=== PATIENT | male | born 1955 | race Caucasian/White ===

== ENCOUNTER → 2017-01-17 | Outpatient (CLI) | payer OTHER ==
[~2017-01-17] MED LIST: AMARYL 2MG T2 MG/TAB PO; ASPIRIN 32325 MG/TAB PO; ASPIRIN E.C. 8181 MG PO; CIPRO 500MG TA500 MG PO; DAILY VITAMINS1 TAB PO; FLOMAX 0.40.4 MG/CAP PO; GLIMEPIRIDE4 MG PO; JANUVIA 100MG100 MG PO; MAREPA1200 MG PO; METFORMIN1000 MG PO; MEVACOR 20M20 MG/TAB PO; MOTRIN 200200 MG/TAB PO; OMNICEF 300MG300 MG PO; PRAVACHOL 20MG20 MG PO; PYRIDIUM 100MG100 MG PO; SALINE MIST 4545 ML NS; TENORMIN100 MG PO; TENORMIN50 MG PO; ZESTORETIC 25 M1 TAB PO; ZESTRIL 5MG5 MG PO
== END ==
LOC: SUN.DIA 15:21
DX: E11.65 Type 2 diabetes mellitus with hyperglycemia (principal); E66.9 Obesity, unspecified; Z68.28 Body mass index [BMI] 28.0-28.9, adult; Z71.3 Dietary counseling and surveillance; E78.5 Hyperlipidemia, unspecified; I10 Essential (primary) hypertension
CPT/HCPCS: G0108

== ENCOUNTER 2017-01-29 22:44 | Emergency (ER) | payer OTHER ==
[~2017-01-29] VITALS: Ht 175.3 cm; Wt 84.1 kg
[~2017-01-29 22:44] MED LIST changes: -AMARYL 2MG T2 MG/TAB PO; -CIPRO 500MG TA500 MG PO; -FLOMAX 0.40.4 MG/CAP PO; -MOTRIN 200200 MG/TAB PO; -OMNICEF 300MG300 MG PO; -PYRIDIUM 100MG100 MG PO; -SALINE MIST 4545 ML NS; -TENORMIN100 MG PO
[2017-01-29 22:54] VITALS: TEMP 98.7
[2017-01-29 23:40] LABS: PH 5 (5-8); SQUAMOUS EPITHELIAL 0-2 /hpf; URINE APPEARANCE Clear; URINE BACTERIA None Seen /hpf; URINE BILIRUBIN Negative (NEGATIVE); URINE BLOOD 1+ (NEGATIVE); URINE COLOR Yellow; URINE GLUCOSE Negative (NEGATIVE); URINE KETONE Negative (NEGATIVE); URINE UROBILINOGEN Negative (NEGATIVE)
[2017-01-30 00:07] LABS: HEMATOCRIT 40.3 % (42.0-52.0); HEMOGLOBIN 13.9 g/dl (13.5-18.0); MEAN CELL VOLUME 89 fl (80.0-100.0); MEAN CORPUSCULAR HEMOGLOBIN 31 pg (27.0-31.0); MEAN CORPUSCULAR HGB CONC 35 g/dl (33.0-37.0); MEAN PLATELET VOLUME 10.3 fl (7.4-10.4); PLATELET COUNT 178 K/mm3 (130-400); RED BLOOD COUNT 4.53 M/mm3 (4.20-5.60); REDCELL DISTRIBUTION WIDTH-CV 12.1 % (11.5-14.5); WHITE BLOOD COUNT 15.8 K/mm3 (4.8-10.8)
[2017-01-30 00:10] LABS: ADD PATHOLOGY DIFF REVIEW NO
[2017-01-30 00:16] LABS: CALCIUM 9.4 mg/dL (8.4-10.2); CREATININE, serum 1.44 mg/dL (0.66-1.25); POTASSIUM 3.6 mmol/L (3.4-5.0)
[2017-01-30 00:26] LABS: BAND 11 % (0-10); EOSINOPHIL 1 % (0-4); NEUTROPHILS 71 % (42.0-75.2); PLATELET ESTIMATE NORMAL (NORMAL); TOTAL CELLS COUNTED 100
[2017-01-30] MEDS ORDERED: OMNICEF 300MG300 MG PO (00:55)
[2017-01-30] MEDS ORDERED: FLOMAX 0.40.4 MG/CAP PO (00:55)
[2017-01-30 01:24] VITALS: BP 98/65; PULSE 58
== END 2017-01-30 01:27 | disposition home or self-care (01) ==
LOC: COL.ER 22:44
PROVIDERS: Emergency Medicine
DX: K59.00 Constipation, unspecified (principal); R33.9 Retention of urine, unspecified; E11.9 Type 2 diabetes mellitus without complications; I10 Essential (primary) hypertension; E78.5 Hyperlipidemia, unspecified; Z79.84 Long term (current) use of oral hypoglycemic drugs; Z79.82 Long term (current) use of aspirin
CPT/HCPCS: J0696

== ENCOUNTER 2017-02-23 05:27 | Observation (INO) | payer OTHER ==
[2017-02-23] VITALS (11 sets, daily range): BP systolic 91–132; BP diastolic 53–83; PULSE 52–87; TEMP 97.8–98.6
[~2017-02-23] VITALS: Ht 175.3 cm; Wt 84.7 kg
[~2017-02-23 05:27] MED LIST changes: +FLOMAX 0.40.4 MG/CAP PO; +OMNICEF 300MG300 MG PO
[2017-02-23] MEDS ORDERED: AMARYL 2MG T2 MG/TAB PO (06:48)
[2017-02-23] MEDS ORDERED: TENORMIN100 MG PO (06:49)
[2017-02-23] MEDS ORDERED: MOTRIN 200200 MG/TAB PO (06:50)
[2017-02-23] MEDS ORDERED: SALINE MIST 4545 ML NS (06:51)
[2017-02-23] MEDS ORDERED: PYRIDIUM 100MG100 MG PO (06:52)
[2017-02-23] MEDS ORDERED: CIPRO 500MG TA500 MG PO (06:53)
[2017-02-24] VITALS (7 sets, daily range): BP systolic 96–113; BP diastolic 56–69; PULSE 54–75; TEMP 97.8–98.6
[2017-02-24 06:41] LABS: MEAN CELL VOLUME 93 fl (80.0-100.0); MEAN CORPUSCULAR HGB CONC 32 g/dl (33.0-37.0); PLATELET COUNT 164 K/mm3 (130-400); REDCELL DISTRIBUTION WIDTH-CV 11.9 % (11.5-14.5); WHITE BLOOD COUNT 12.5 K/mm3 (4.8-10.8)
[2017-02-24 06:49] LABS: HEMATOCRIT 30.6 % (42.0-52.0); HEMOGLOBIN 9.9 g/dl (13.5-18.0); MEAN CORPUSCULAR HEMOGLOBIN 30 pg (27.0-31.0)
[2017-02-25 06:00] VITALS: BP 112/70; PULSE 66; TEMP 98.1
[2017-02-25 09:35] VITALS: BP 119/71; PULSE 64; TEMP 99.3
== END 2017-02-25 11:24 | disposition home or self-care (01) ==
LOC: SDCO 05:27 → SURG 10:30 → SDCO 02-24 09:21 → SURG 02-24 09:22
PROVIDERS: Urology
DX: N40.1 Benign prostatic hyperplasia with lower urinary tract symptoms (principal); N13.8 Other obstructive and reflux uropathy; I10 Essential (primary) hypertension; E11.9 Type 2 diabetes mellitus without complications; E78.5 Hyperlipidemia, unspecified; F41.8 Other specified anxiety disorders; F32.9 Major depressive disorder, single episode, unspecified; M17.9 Osteoarthritis of knee, unspecified; R33.9 Retention of urine, unspecified; Z83.3 Family history of diabetes mellitus; Z82.49 Family history of ischemic heart disease and other diseases of the circulatory system; Z79.84 Long term (current) use of oral hypoglycemic drugs
CPT/HCPCS: OP; G0378; J0690; J2405; J2704; J3010; J7030

== ENCOUNTER → 2017-03-01 | Outpatient (CLI) | payer OTHER ==
[~2017-03-01] MED LIST changes: +AMARYL 2MG T2 MG/TAB PO; +CIPRO 500MG TA500 MG PO; +MOTRIN 200200 MG/TAB PO; +PYRIDIUM 100MG100 MG PO; +SALINE MIST 4545 ML NS; +TENORMIN100 MG PO
== END ==
LOC: COL.RAD 09:30
DX: J98.6 Disorders of diaphragm (principal)

== ENCOUNTER → 2017-03-06 | Outpatient (CLI) | payer OTHER ==
[2017-03-06 11:37] LABS: MEAN CELL VOLUME 90 fl (80.0-100.0); MEAN CORPUSCULAR HGB CONC 34 g/dl (33.0-37.0); MEAN PLATELET VOLUME 9.7 fl (7.4-10.4); PLATELET COUNT 309 K/mm3 (130-400); RED BLOOD COUNT 3.81 M/mm3 (4.20-5.60); REDCELL DISTRIBUTION WIDTH-CV 12.1 % (11.5-14.5); WHITE BLOOD COUNT 10.7 K/mm3 (4.8-10.8)
[2017-03-06 11:42] LABS: HEMATOCRIT 34.4 % (42.0-52.0); HEMOGLOBIN 11.6 g/dl (13.5-18.0); MEAN CORPUSCULAR HEMOGLOBIN 30 pg (27.0-31.0)
== END ==
LOC: COL.LAB 10:03
DX: E11.9 Type 2 diabetes mellitus without complications (principal); I10 Essential (primary) hypertension

== ENCOUNTER → 2017-07-18 | Outpatient (CLI) | payer BC | LOC: SUN.DIA 10:46 | DX: E11.9 Type 2 diabetes mellitus without complications (principal); E78.5 Hyperlipidemia, unspecified; I10 Essential (primary) hypertension; E66.9 Obesity, unspecified; Z68.28 Body mass index [BMI] 28.0-28.9, adult; Z71.3 Dietary counseling and surveillance | CPT/HCPCS: G0108 ==

== ENCOUNTER 2018-05-07 16:38 | Emergency (ER) | payer BC ==
[~2018-05-07] VITALS: Ht 175.3 cm; Wt 86.4 kg
[2018-05-07 16:42] VITALS: BP 147/77; TEMP 98.6
[2018-05-07 19:01] VITALS: PULSE 75
== END 2018-05-07 19:03 | disposition home or self-care (01) ==
LOC: COL.ER 16:38
DX: S01.81XA Laceration without foreign body of other part of head, initial encounter (principal); E11.9 Type 2 diabetes mellitus without complications; I10 Essential (primary) hypertension; Z79.84 Long term (current) use of oral hypoglycemic drugs; E78.5 Hyperlipidemia, unspecified; Z79.82 Long term (current) use of aspirin; W26.8XXA Contact with other sharp object(s), not elsewhere classified, initial encounter; Y92.009 Unspecified place in unspecified non-institutional (private) residence as the place of occurrence of the external cause

== ENCOUNTER → 2020-06-08 | Outpatient (CLI) | payer BC | LOC: COL.RAD 07:51 | DX: R10.11 Right upper quadrant pain (principal); R94.5 Abnormal results of liver function studies ==

== ENCOUNTER → 2020-07-22 | Outpatient (CLI) | payer BC ==
[~2020-07-22] VITALS: Ht 175.3 cm; Wt 84.2 kg
[2020-07-22] VITALS (9 sets, daily range): BP systolic 103–137; BP diastolic 57–80; PULSE 56–74
[~2020-07-22] MED LIST changes: +GLUCOPHAGE1000 MG PO; +GLUCOTROL XL10 MG PO; -METFORMIN1000 MG PO
[2020-07-22 09:47] LABS: PROTHROMBIN TIME 11.2 SECONDS (9.7-12.8)
== END ==
LOC: COL.RAD 08:50
PROVIDERS: Internal Medicine Gastroenterology
DX: K76.0 Fatty (change of) liver, not elsewhere classified (principal)

== ENCOUNTER → 2021-08-23 | Outpatient (CLI) | payer BC ==
--- NOTE | 2021-08-19 14:49 | NUR ---
LMOM WITH INSTRUCTIONS AND CALL BACK NUMBER PATIENT INSTRUCTED TO STOP ASA, MOTRIN, ALEVE AND ADVIL.
[2021-08-23] VITALS (8 sets, daily range): BP systolic 97–127; BP diastolic 55–65; PULSE 66–75; TEMP 98
[~2021-08-23] VITALS: Ht 175.3 cm; Wt 76.6 kg
[~2021-08-23] MED LIST changes: +GLUCOTROL XL2.5 MG PO; +NEURONTIN800 MG/TAB PO; +OXY IR5 MG PO; +ZANAFLEX CAPSULE4 MG PO
[2021-08-23 11:03] LABS: INR 1.1 (0.8-3.0); PROTHROMBIN TIME 12.2 SECONDS (9.7-12.8)
== END ==
LOC: COL.RAD 09:56
PROVIDERS: Internal Medicine Gastroenterology
DX: R74.8 Abnormal levels of other serum enzymes (principal)
CPT/HCPCS: 32108

== ENCOUNTER 2022-03-01 07:00 | Day surgery (SDC) | payer MEDICARE ==
[~2022-03-01] VITALS: Ht 175.3 cm; Wt 79.6 kg
[2022-03-01] MEDS ORDERED: PRINIVIL20 MG PO (07:38)
[2022-03-01] MEDS ORDERED: B-12 500 MCG PO (07:39)
[2022-03-01 08:07] VITALS: BP 138/75; PULSE 59; TEMP 98.1
[2022-03-01 09:35] VITALS: BP 116/73; PULSE 61; TEMP 97.2
--- NOTE | 2022-03-01 09:35 | NUR ---
PT TO BAY 1 PER CART FROM OR. REPORT RECEIVED. VS OBTAINED. CALL LIGHT WITHIN REACH. PT DENIES ANY NEEDS AT THIS TIME.
[2022-03-01] MEDS ORDERED: PERCOCET 325 MG1 TA2 PO (09:45)
[2022-03-01 09:50] VITALS: BP 116/79; PULSE 52
[2022-03-01 10:05] VITALS: BP 112/66; PULSE 52
--- NOTE | 2022-03-01 10:05 | NUR ---
PT TOLERATING WATER AND PUDDING. PT DENIES ANY NEEDS AT THIS TIME.
[2022-03-01 10:20] VITALS: BP 111/66; PULSE 53
--- NOTE | 2022-03-01 10:20 | NUR ---
PT RATES PAIN AT 7/10 AT INCISIONAL SITE. PERCOCET 5/325 GIVEN AT 1015. PT STATES HE IS READY FOR DISCHARGE.
--- NOTE | 2022-03-01 10:25 | NUR ---
IV DC'D AT THIS TIME.
--- NOTE | 2022-03-01 10:30 | NUR ---
DISCHARGE EDUCATION COMPLETED WITH PT AND HIS DAUGHTER. VERBALIZED UNDERSTANDING OF HOME AND FOLLOW UP CARE. ALL QUESTIONS ANSWERED. DISCHARGE PAPERWORK GIVEN TO PT.
--- NOTE | 2022-03-01 10:45 | NUR ---
PT OFF UNIT PER WHEELCHAIR. PT DISCHARGE TO HOME WITH DAUGHTER PER PERSONAL VEHICLE.
== END 2022-03-01 10:45 | disposition home or self-care (01) ==
LOC: SDCO 07:00
DX: K40.90 Unilateral inguinal hernia, without obstruction or gangrene, not specified as recurrent (principal)
CPT/HCPCS: C1781; J0690; J2704; J3010; J7120

== ENCOUNTER 2022-04-01 10:41 | Observation (INO) | payer MEDICARE ==
[~2022-04-01] VITALS: Ht 175.3 cm; Wt 81.1 kg
[~2022-04-01 10:41] MED LIST changes: +B-12 500 MCG PO; +PERCOCET 325 MG1 TA2 PO; +PRINIVIL20 MG PO
[2022-04-01 12:27] LABS: BASO % 0.4 % (0.0-2.0); EOS # 0.2 K/mm3 (0.0-0.7); EOS % 1.5 % (0.0-4.0); GRAN # 8.9 K/mm3 (1.4-6.5); HEMATOCRIT 41.7 % (42.0-52.0); HEMOGLOBIN 13.7 g/dl (13.5-18.0); LYMPH # 1.1 K/mm3 (1.2-3.4); LYMPH % 9.7 % (20.0-51.0); MEAN CELL VOLUME 84 fl (80.0-100.0); MEAN CORPUSCULAR HEMOGLOBIN 28 pg (27-31); MEAN CORPUSCULAR HGB CONC 33 g/dl (33.0-37.0); MEAN PLATELET VOLUME 9.8 fl (7.4-10.4); MONO # 0.7 K/mm3 (0.1-0.6); MONO % 6.6 % (1.7-9.3); PLATELET COUNT 285 K/mm3 (130-400); RED BLOOD COUNT 4.94 M/mm3 (4.20-5.60); REDCELL DISTRIBUTION WIDTH-CV 14.5 % (11.5-14.5)
[2022-04-01 12:46] LABS: ALBUMIN 3.7 gm/dL (3.4-4.8); BILIRUBIN,TOTAL 0.7 mg/dL (0.2-1.2); C-REACTIVE PROTEIN 0.22 mg/dL (0.00-0.50); CALCIUM 9.3 mg/dL (8.4-10.2); CREATININE, serum 0.61 mg/dL (0.72-1.25); POTASSIUM 3.7 mmol/L (3.5-4.5); TOTAL PROTEIN 6.7 gm/dL (6.2-8.1)
[2022-04-01 12:56] LABS: COLLECTION METHOD CLEAN CATCH
[2022-04-01 13:02] LABS: MUCOUS Present (NOT PRESENT); PH 5 (5-8); SQUAMOUS EPITHELIAL 0-2 /hpf (0-10); URINE APPEARANCE Hazy (CLEAR/HAZY); URINE BLOOD Negative (NEGATIVE); URINE COLOR Yellow (YELLOW); URINE GLUCOSE Negative (NEGATIVE); URINE KETONE Negative (NEGATIVE); URINE NITRATE Negative (NEGATIVE); URINE PROTEIN(semi-quant) Negative (NEGATIVE); URINE RBC 0-2 /hpf (0-2); URINE UROBILINOGEN Negative (NEGATIVE)
[2022-04-01 13:07] LABS: URINE BACTERIA Rare /hpf (NONE SEEN)
[2022-04-01 19:56] VITALS: BP 124/85; PULSE 115; TEMP 98.9
[2022-04-01 20:03] VITALS: BP 135/71; PULSE 64; TEMP 99
[2022-04-01] MEDS ORDERED: PRINZIDE 25 MG-1 TAB PO (20:09)
[2022-04-01] MEDS ORDERED: LIPITOR20 MG PO (20:10)
[2022-04-01] MEDS ORDERED: GLUCOTROL XL5 MG/TAB PO (20:11)
[2022-04-01] MEDS ORDERED: NEURONTIN300 MG/CAP PO (20:12)
[2022-04-01] MEDS ORDERED: TENORMIN 2525 MG/TAB PO (20:13)
[2022-04-01] MEDS ORDERED: MOBIC 7.5MG7.5 MG PO (20:13)
[2022-04-01] MEDS ORDERED: ROBAXIN 50500 MG/TAB PO (20:14)
--- NOTE | 2022-04-01 22:50 | NUR ---
Patient arrived to medical unit from ER at approximately 2009. Reports level 5 pain to back. Requested his home pain medication. Med rec complete and called [facility]. Reordered pain medications as requested, but stated that Dr. Dwyer would finish ordering medications. High fall risk precautions in place. Patient voices no questions, needs, or concerns at this time. IV fluids continue per orders.
[2022-04-01 23:42] VITALS: BP 95/50; PULSE 62; TEMP 98
[2022-04-02 03:44] VITALS: BP 103/67; PULSE 64; TEMP 98
--- NOTE | 2022-04-02 05:59 | NUR ---
Patient finished IV fluids per orders. One assist with ambulating to bathroom. In bed with call light within reach. Bed alarm on.
[2022-04-02 06:37] LABS: BASO % 0.5 % (0.0-2.0); EOS # 0.2 K/mm3 (0.0-0.7); EOS % 2.2 % (0.0-4.0); GRAN # 6.2 K/mm3 (1.4-6.5); GRAN % 77.8 % (42.2-75.2); LYMPH # 1.1 K/mm3 (1.2-3.4); LYMPH % 13.2 % (20.0-51.0); MEAN CELL VOLUME 86 fl (80.0-100.0); MEAN CORPUSCULAR HGB CONC 33 g/dl (33.0-37.0); MONO # 0.5 K/mm3 (0.1-0.6); MONO % 5.7 % (1.7-9.3); PLATELET COUNT 238 K/mm3 (130-400); REDCELL DISTRIBUTION WIDTH-CV 14.6 % (11.5-14.5)
[2022-04-02 06:39] LABS: HEMATOCRIT 35.1 % (42.0-52.0); HEMOGLOBIN 11.5 g/dl (13.5-18.0); MEAN CORPUSCULAR HEMOGLOBIN 28 pg (27-31)
[2022-04-02 06:54] LABS: CALCIUM 8.1 mg/dL (8.4-10.2); CREATININE, serum 0.5 mg/dL (0.72-1.25); POTASSIUM 3.3 mmol/L (3.5-4.5)
[2022-04-02 08:00] VITALS: BP 107/66; PULSE 69; TEMP 98.6
--- NOTE | 2022-04-02 10:53 | NUR ---
Initial visit; Patient thanked Binman for stopping though declined spiritual care at this time.
[2022-04-02 11:25] VITALS: BP 116/64; PULSE 61; TEMP 98.1
--- NOTE | 2022-04-02 12:05 | NUR ---
SW met with pt to complete intake. Pt lives at [place]. Pt is and his next of kin is his daughter, Li @ [phone]. Pt reports he is independent on all ADLS and sometimes uses his FWW or cane. He still drives and is employed. PCP is Eben Churchill and gets medications from [facility]. Pt reports he does not have DPOA_HC and is not interested in one at this time. No other needs at this time. DC: Home
--- NOTE | 2022-04-02 15:25 | NUR ---
PATIENT HAD A CALM DAY , DUE MEDS GIVEN, VS STABLE, ORIENT AND ALERT X4, CONTINUES TO HAVE UPPER EXTRIMITY WEAKNESS, PT DC TO GO HOME TODAY, IV REMOVED TIP INTACT, TELE REMOVED. DISCHARGE SUMMARY PROVIDED AND INSRTUCTIONS GIVEN, PT VERBALIZE UNDERSTANDING.ESCORTED OUT OF THE BUILDING BY PT TECH. PT AMBULATORY WITH A WALKER.
== END 2022-04-02 15:00 | disposition home or self-care (01) ==
LOC: COL.ER 10:41 → MEDICAL 17:38
PROVIDERS: Nurse Practitioner; ADMIT Student in an Organized Health Care Education/Training Program
DX: R74.8 Abnormal levels of other serum enzymes (principal); I10 Essential (primary) hypertension; E11.9 Type 2 diabetes mellitus without complications
CPT/HCPCS: G0378; J3010; J7030

== ENCOUNTER 2022-04-05 16:38 | Observation (INO) | payer MEDICARE ==
[~2022-04-05] VITALS: Ht 175.3 cm; Wt 79.5 kg
[~2022-04-05 16:38] MED LIST changes: +GLUCOTROL XL5 MG/TAB PO; +LIPITOR20 MG PO; +MOBIC 7.5MG7.5 MG PO; +NEURONTIN300 MG/CAP PO; +PRINZIDE 25 MG-1 TAB PO; +ROBAXIN 50500 MG/TAB PO; +TENORMIN 2525 MG/TAB PO
[2022-04-05 17:50] LABS: ALBUMIN 3.5 gm/dL (3.4-4.8); CREATININE, serum 0.55 mg/dL (0.72-1.25); MAGNESIUM 1.8 mg/dL (1.6-2.6); PHOSPHOROUS 3.4 mg/dL (2.3-4.7); POTASSIUM 3.5 mmol/L (3.5-4.5)
[2022-04-05 18:10] LABS: TSH w REFLEX 3.549 uIU/mL (0.350-4.940)
[2022-04-05 18:54] LABS: COLLECTION METHOD CLEAN CATCH
[2022-04-05 19:05] LABS: MUCOUS Present (NOT PRESENT); PH 5 (5-8); SQUAMOUS EPITHELIAL 0-2 /hpf (0-10); URINE APPEARANCE Cloudy (CLEAR/HAZY); URINE BACTERIA Rare /hpf (NONE SEEN); URINE BLOOD Negative (NEGATIVE); URINE COLOR Amber (YELLOW); URINE GLUCOSE Negative (NEGATIVE); URINE KETONE Trace (NEGATIVE); URINE NITRATE Negative (NEGATIVE); URINE PROTEIN(semi-quant) 1+ (NEGATIVE); URINE UROBILINOGEN Negative (NEGATIVE)
[2022-04-05 19:32] LABS: BASO % 0.4 % (0.0-2.0); EOS # 0.2 K/mm3 (0.0-0.7); EOS % 1.8 % (0.0-4.0); GRAN # 8.5 K/mm3 (1.4-6.5); GRAN % 79.7 % (42.2-75.2); HEMATOCRIT 37.3 % (42.0-52.0); HEMOGLOBIN 12.9 g/dl (13.5-18.0); LYMPH # 1.3 K/mm3 (1.2-3.4); LYMPH % 12.1 % (20.0-51.0); MEAN CELL VOLUME 83 fl (80.0-100.0); MEAN CORPUSCULAR HEMOGLOBIN 29 pg (27-31); MEAN CORPUSCULAR HGB CONC 35 g/dl (33.0-37.0); MEAN PLATELET VOLUME 10.9 fl (7.4-10.4); MONO # 0.6 K/mm3 (0.1-0.6); MONO % 5.4 % (1.7-9.3); PLATELET COUNT 292 K/mm3 (130-400); RED BLOOD COUNT 4.49 M/mm3 (4.20-5.60); REDCELL DISTRIBUTION WIDTH-CV 14.6 % (11.5-14.5)
[2022-04-05 21:20] LABS: BILIRUBIN,TOTAL 0.8 mg/dL (0.2-1.2)
[2022-04-06 06:56] LABS: BASO % 0.4 % (0.0-2.0); EOS # 0.2 K/mm3 (0.0-0.7); EOS % 1.9 % (0.0-4.0); GRAN # 6.1 K/mm3 (1.4-6.5); GRAN % 78.1 % (42.2-75.2); HEMOGLOBIN 11.4 g/dl (13.5-18.0); LYMPH % 13.2 % (20.0-51.0); MEAN CELL VOLUME 86 fl (80.0-100.0); MEAN CORPUSCULAR HEMOGLOBIN 28 pg (27-31); MEAN CORPUSCULAR HGB CONC 33 g/dl (33.0-37.0); MEAN PLATELET VOLUME 9.8 fl (7.4-10.4); MONO # 0.5 K/mm3 (0.1-0.6); MONO % 5.9 % (1.7-9.3); PLATELET COUNT 210 K/mm3 (130-400); RED BLOOD COUNT 4.09 M/mm3 (4.20-5.60); REDCELL DISTRIBUTION WIDTH-CV 14.9 % (11.5-14.5)
[2022-04-06 07:19] LABS: ALBUMIN 2.8 gm/dL (3.4-4.8); BILIRUBIN,TOTAL 0.8 mg/dL (0.2-1.2); CALCIUM 8.1 mg/dL (8.4-10.2); CREATININE, serum 0.52 mg/dL (0.72-1.25); MAGNESIUM 1.7 mg/dL (1.6-2.6); POTASSIUM 3.5 mmol/L (3.5-4.5); TOTAL PROTEIN 5.2 gm/dL (6.2-8.1)
[2022-04-06 09:17] VITALS: BP 106/66; PULSE 74; TEMP 97.9
[2022-04-06 11:34] VITALS: BP 113/65; PULSE 56; TEMP 98.6
[2022-04-06] MEDS ORDERED: PRINZIDE 25 MG-1 TAB PO (15:02)
[2022-04-06 16:09] VITALS: BP 106/61; PULSE 60; TEMP 98.3
[2022-04-06 19:40] VITALS: BP 115/67; PULSE 67; TEMP 98.2
[2022-04-06 23:01] VITALS: BP 113/58; PULSE 61; TEMP 98.4
[2022-04-07] VITALS (7 sets, daily range): BP systolic 96–124; BP diastolic 54–70; PULSE 54–69; TEMP 97.5–98.6
--- NOTE | 2022-04-07 00:44 | NUR ---
PATIENT IN BED ON ROOM ENTRY. ALERT AND ORIENTED. C/O MODERATE PAIN AND STATED HE WOULD TAKE ANOTHER ROBAXIN WHEN IT WAS DUE BUT UPON REASSESSMENT NO LONGER NEEDED IT. PATIENT REFUSED HIS LOVENOX. PATIENT STATES HE WAS ABLE TO STAND AT THE SIDE OF BED TO VOID. NO FURTHER NEEDS AT THIS TIME. CALL LIGHT IN REACH.
[2022-04-07 06:58] LABS: ALBUMIN 2.6 gm/dL (3.4-4.8); BILIRUBIN,TOTAL 0.5 mg/dL (0.2-1.2); CALCIUM 7.9 mg/dL (8.4-10.2); CREATININE, serum 0.5 mg/dL (0.72-1.25); MAGNESIUM 1.7 mg/dL (1.6-2.6); POTASSIUM 3.8 mmol/L (3.5-4.5); TOTAL PROTEIN 4.9 gm/dL (6.2-8.1)
--- NOTE | 2022-04-07 12:05 | NUR ---
PT A&O X4, PT ABLE TO MAKE NEEDS KNOWN, PT RESTING IN BED, FALL PRECAUTIONS IN PLACE, VSS, CALL LIGHT WITHIN REACH
--- NOTE | 2022-04-07 13:00 | NUR ---
production worker met with patient to complete intake and discuss discharge plan. Patient lives at home alone in [place]. He is mostly independent with his ADL's but since his back surgery he has had home health coming in to help with PT/OT needs. He "thinks" it is [facility]. Patient does utilize a walker to assit with ambulation and has no home oxygen needs. PCP is Dr. Alvarez and he utilizes [facility] for prescriptions. Patient does not have a DPOA-HC established and is not interest is completing one at this time. He has three adult children, Li [phone]), Tania [phone] and a son in [place]. Patient verbalizes that he is ok with his children being his decision maker but Li is his first point of contact because "she's an RN". SW discussed PT's recommendation of going home with HH vs OP therapy. Patient verbalizes that he would like to go home with HH and utilize [facility] as he is already established with them. Patient also verbalizes that he is unable to drive. SW placed a phone call to Kalen at [facility] to confirm if the patient is currently established with them. She was currently driving and will verify when she gets back to the office. Discharge plan: Home with HH
--- NOTE | 2022-04-07 13:05 | NUR ---
Initial visit; Patient thanked Hand Alterations Tailor for looking in on him and offering a get well message. Patient declined Spiritual Care.
--- NOTE | 2022-04-07 19:30 | NUR ---
RECEIVED CHANGE OF SHIFT REPORT FROM DAY SHIFT RN.
--- NOTE | 2022-04-08 00:46 | NUR ---
PATIENT RESTING IN BED WITH NO REPORTED PROBLEMS. IV FLUIDS INFUSING WITH NO PROBLEMS. VOIDING WITH NO DIFFICULTY.
[2022-04-08 03:32] VITALS: BP 112/59; PULSE 58; TEMP 98
[2022-04-08 06:59] LABS: BASO % 0.4 % (0.0-2.0); EOS # 0.2 K/mm3 (0.0-0.7); EOS % 1.8 % (0.0-4.0); GRAN # 6.6 K/mm3 (1.4-6.5); GRAN % 79.6 % (42.2-75.2); HEMATOCRIT 37.6 % (42.0-52.0); HEMOGLOBIN 11.8 g/dl (13.5-18.0); LYMPH % 11.5 % (20.0-51.0); MEAN CELL VOLUME 89 fl (80.0-100.0); MEAN CORPUSCULAR HEMOGLOBIN 28 pg (27-31); MEAN CORPUSCULAR HGB CONC 31 g/dl (33.0-37.0); MEAN PLATELET VOLUME 10.5 fl (7.4-10.4); MONO # 0.5 K/mm3 (0.1-0.6); MONO % 6.1 % (1.7-9.3); PLATELET COUNT 201 K/mm3 (130-400); RED BLOOD COUNT 4.25 M/mm3 (4.20-5.60); REDCELL DISTRIBUTION WIDTH-CV 15.3 % (11.5-14.5)
[2022-04-08 07:23] LABS: CALCIUM 8.1 mg/dL (8.4-10.2); CREATININE, serum 0.49 mg/dL (0.72-1.25); POTASSIUM 3.9 mmol/L (3.5-4.5)
[2022-04-08 07:27] VITALS: BP 157/73; PULSE 58; TEMP 98
--- NOTE | 2022-04-08 09:48 | NUR ---
VSS,PT A&O X4, PT ABLE TO MAKE NEEDS KNOWN, PT UP TO CHAIR THIS AM, REPORTS BACK PAIN 2/, FALL PRECAUTIONS IN PLACE, CALL LIGHT IN REACH
--- NOTE | 2022-04-08 11:29 | NUR ---
PT DISMISSED TO HOME TODAY WITH HH, PT'S DAUGHTER AND GRANDDAUGHTER AT BEDSIDE, PT AND FAMILY EDUCATED ON DISMISSAL INSTRUCTIONS/MEDICATION INSTRUCTIONS/FOLLOW UP INSTRUCTIONS, PT AND FAMILY DENIES QUESTIONS/CONCERNS AT TIME OF DISMISSAL, PT TRANSPORTED TO EXIT PER , NO FURTHER CONCERNS
--- NOTE | 2022-04-08 14:07 | NUR ---
Patients clinical updates and discharge orders faxed to [facility] . Phone call made and message left for Mike to notify of patients discharge.
== END 2022-04-08 15:00 | disposition home or self-care (01) ==
LOC: COL.ER 16:38 → SURG 19:04
PROVIDERS: Emergency Medicine; Student in an Organized Health Care Education/Training Program; ADMIT Internal Medicine
DX: G72.0 Drug-induced myopathy (principal); T50.905A Adverse effect of unspecified drugs, medicaments and biological substances, initial encounter; R53.1 Weakness; D72.829 Elevated white blood cell count, unspecified; I10 Essential (primary) hypertension; E78.5 Hyperlipidemia, unspecified; E11.9 Type 2 diabetes mellitus without complications; Z79.899 Other long term (current) drug therapy; Z79.84 Long term (current) use of oral hypoglycemic drugs
CPT/HCPCS: G0378; J1650; J2270; J7030; J7120

== ENCOUNTER → 2022-04-14 | Outpatient (CLI) | payer MEDICARE | LOC: MHCPAIN 15:03 | DX: G72.9 Myopathy, unspecified (principal); R74.8 Abnormal levels of other serum enzymes; Z98.1 Arthrodesis status ==

== ENCOUNTER 2022-05-11 07:45 | Emergency (ER) | payer MEDICARE ==
[~2022-05-11] VITALS: Ht 175.3 cm; Wt 77.3 kg
[2022-05-11 07:58] VITALS: TEMP 98.2
[2022-05-11 08:41] LABS: BASO % 0.3 % (0.0-2.0); EOS # 0.2 K/mm3 (0.0-0.7); EOS % 1.2 % (0.0-4.0); GRAN # 10.4 K/mm3 (1.4-6.5); GRAN % 83.4 % (42.2-75.2); HEMATOCRIT 43.2 % (42.0-52.0); LYMPH # 1.2 K/mm3 (1.2-3.4); LYMPH % 9.3 % (20.0-51.0); MEAN CELL VOLUME 87 fl (80.0-100.0); MEAN CORPUSCULAR HEMOGLOBIN 28 pg (27-31); MEAN CORPUSCULAR HGB CONC 32 g/dl (33.0-37.0); MEAN PLATELET VOLUME 9.9 fl (7.4-10.4); MONO # 0.6 K/mm3 (0.1-0.6); MONO % 4.8 % (1.7-9.3); PLATELET COUNT 308 K/mm3 (130-400); RED BLOOD COUNT 4.94 M/mm3 (4.20-5.60); REDCELL DISTRIBUTION WIDTH-CV 15.1 % (11.5-14.5)
[2022-05-11 09:01] LABS: CREATININE, serum 0.58 mg/dL (0.72-1.25); POTASSIUM 4.2 mmol/L (3.5-4.5)
[2022-05-11 09:02] LABS: ALBUMIN 3.5 gm/dL (3.4-4.8); BILIRUBIN,TOTAL 0.9 mg/dL (0.2-1.2); CALCIUM 9.3 mg/dL (8.4-10.2); TOTAL PROTEIN 6.4 gm/dL (6.2-8.1); TROPONIN-I 0.01 ng/mL (0.00-0.033)
[2022-05-11] MEDS ORDERED: PRINIVIL20 MG (10:05)
--- NOTE | 2022-05-11 11:03 | NUR ---
head screen worker met with patient and his daughter, Yonis Ochoa #[phone] to discuss insurance coverage and rehab options. Patient lives alone and is having difficulty with managing self care. Patient is on temperary disability from his employment with [id number]. Patient states he has appointment with [facility] on 05/31 as his physicians feels he has a neurologic disorder. Worker collaborated with emergency room provider regarding referral to [facility] via [facility] for possible need after acute stay. Worker provided daughter with [facility] [employer] number ([employer] volunteer) as she will call them with clarification of insurance questions. Worker contacted [facility] with acute rehab and gave a referral for post acute rehab after acute admission.
[2022-05-11 11:09] LABS: COLLECTION METHOD CLEAN CATCH
[2022-05-11 11:33] LABS: URINE APPEARANCE Clear (CLEAR/HAZY); URINE BLOOD Negative (NEGATIVE); URINE COLOR Yellow (YELLOW); URINE GLUCOSE Negative (NEGATIVE); URINE KETONE Negative (NEGATIVE); URINE NITRATE Negative (NEGATIVE); URINE PROTEIN(semi-quant) Negative (NEGATIVE); URINE UROBILINOGEN 0.2 E.U/dL (0.2-1.0)
[2022-05-11 11:36] LABS: MUCOUS Present (NOT PRESENT); SQUAMOUS EPITHELIAL None Seen /hpf (0-10); URINE BACTERIA None Seen /hpf (NONE SEEN); URINE RBC 0-2 /hpf (0-2)
[2022-05-11 18:45] VITALS: BP 120/93; PULSE 72
[2022-05-20] MEDS ORDERED: TYLENOL 500MG500 MG PO (11:29)
[2022-05-20] MEDS ORDERED: OS-CAL 500 + D1 TAB PO (11:30)
[2022-05-20] MEDS ORDERED: FOLIC ACID 11 MG/TA1 PO (11:30)
[2022-05-20] MEDS ORDERED: MELATONIN5 M1 PO (11:31)
[2022-05-20] MEDS ORDERED: TREXALL15 MG PO (11:32)
[2022-05-20] MEDS ORDERED: PROTONIX 40MG T40 MG PO (11:33)
[2022-05-20] MEDS ORDERED: PREDNISONE10 MG PO ×2 (11:34→11:35)
[2022-05-20] MEDS ORDERED: SENOKOT S 50 MG1 TAB PO (11:35)
== END 2022-05-11 19:00 | disposition short-term general hospital (02) ==
LOC: COL.ER 07:45
PROVIDERS: Emergency Medicine
DX: M62.82 Rhabdomyolysis (principal); E86.0 Dehydration; M62.831 Muscle spasm of calf; R74.01 Elevation of levels of liver transaminase levels; D72.829 Elevated white blood cell count, unspecified; Z20.822 Contact with and (suspected) exposure to COVID-19
CPT/HCPCS: J7120